=== PATIENT | female | born 2000 | race Caucasian/White ===

== ENCOUNTER 2023-04-04 13:58 | Emergency (ER) | payer SELFPAY ==
[~2023-04-04] VITALS: Ht 152.4 cm; Wt 68.2 kg
[2023-04-04 14:25] LABS: BASOPHILS % 0.3 % (0.0-2.0); EOSINOPHILS % 0.7 % (0.0-5.0); HEMATOCRIT. 39.7 % (36.0-48.0); HEMOGLOBIN. 13.8 g/dL (12.0-16.0); MEAN CORPUSCULAR HEMOGLOBIN 30.1 pg (28.0-32.0); MEAN CORPUSCULAR VOLUME 86.8 fL (81.0-99.0); MEAN PLATELET VOLUME 8.1 fl (7.4-10.4); MONOCYTES % 4.8 % (2.0-8.0); NEUTROPHILS % 70.2 % (40.0-76.0); PLATELET 367 x1000/uL (130-400); RED BLOOD CELL COUNT 4.58 mill/uL (4.2-5.4); RED CELL DISTRIBUTION WIDTH 12.8 % (11.6-14.6)
[2023-04-04 14:40] LABS: CHLORIDE 106 mEq/L (98-107)
[2023-04-04 15:10] LABS: B-HCG QUANTITATIVE 3040 mIU/mL (<3)
[2023-04-04 16:52] LABS: CLARITY URINE CLEAR (CLEAR); COLOR URINE YELLOW (YELLOW); KETONES URINE NEGATIVE (NEGATIVE); LEUKOCYTE ESTERASE URINE NEGATIVE (NEGATIVE); NITRITE URINE NEGATIVE (NEGATIVE); OCCULT BLOOD URINE NEGATIVE (NEGATIVE); PROTEIN URINE NEGATIVE (NEGATIVE)
[2023-04-04 18:35] VITALS: BP 129/78
== END 2023-04-04 18:36 | disposition home or self-care (01) ==
LOC: ER 13:58
DX: O26.891 Other specified pregnancy related conditions, first trimester (principal); R10.9 Unspecified abdominal pain; Z3A.01 Less than 8 weeks gestation of pregnancy
CPT/HCPCS: 36415; 76801; 80053; 81003; 84702; 85025; 99284

== ENCOUNTER 2023-05-14 22:18 | Emergency (ER) | payer SELFPAY ==
[~2023-05-14] VITALS: Ht 152.4 cm; Wt 68.0 kg
[2023-05-14 23:13] VITALS: BP 109/76; PULSE 71; RESP 17; O2SAT 100
[2023-05-14] MEDS ORDERED: ACETAMINOPHEN 325MG TABLET PO PRN (23:45)
[2023-05-15 00:13] LABS: BASOPHILS % 0.5 % (0.0-2.0); EOSINOPHILS % 1.2 % (0.0-5.0); HEMATOCRIT. 36.9 % (36.0-48.0); HEMOGLOBIN. 12.8 g/dL (12.0-16.0); LYMPHOCYTES % 29.2 % (20.0-50.0); MEAN CORPUSCULAR HEMOGLOBIN 29.9 pg (28.0-32.0); MONOCYTES % 8.3 % (2.0-8.0); NEUTROPHILS % 60.8 % (40.0-76.0); PLATELET 343 x1000/uL (130-400); RED BLOOD CELL COUNT 4.28 mill/uL (4.2-5.4)
[2023-05-15 00:18] LABS: CHLORIDE 106 mEq/L (98-107)
[2023-05-15 00:42] LABS: B-HCG QUANTITATIVE 90640 mIU/mL (<3)
[2023-05-15 01:45] VITALS: TEMP 98.6
[2023-05-15] MEDS ORDERED: ACET-2708 MT (02:03)
== END 2023-05-15 02:20 | disposition home or self-care (01) ==
LOC: ER 05-15 00:46
DX: R51.9 Headache, unspecified (principal); I10 Essential (primary) hypertension; Z98.890 Other specified postprocedural states; Z90.49 Acquired absence of other specified parts of digestive tract
CPT/HCPCS: 36415; 76801; 80053; 81025; 84702; 85025; 99284